=== PATIENT | female | born 1980 ===

== ENCOUNTER → 2019-05-13 | Outpatient (CLI) | payer OTHER | LOC: LAB SHORT 12:12 → LAB 12:12 | DX: Z34.80 Encounter for supervision of other normal pregnancy, unspecified trimester (principal) | CPT/HCPCS: 87081; 87653 ==

== ENCOUNTER 2019-05-31 18:25 | Inpatient (IN) | payer OTHER ==
[~2019-05-31] VITALS: Ht 162.6 cm; Wt 86.8 kg
[2019-05-31 19:23] LABS: BASOPHILS ABSOLUTE AUTO 0.09 K/mm3 (0.00-0.23); BASOPHILS PERCENT AUTO 1 % (0-2); EOSINOPHILS ABSOLUTE AUTO 0.32 K/mm3 (0.00-0.68); EOSINOPHILS PERCENT AUTO 3 % (0-6); Hematocrit 36.3 % (33.0-51.0); Hemoglobin 12.1 g/dL (11.5-16.0); IMMATURE GRAN ABSOLUTE AUTO 0.13 K/mm3 (0.00-0.10); IMMATURE GRAN PERCENT AUTO 1 % (0-1); LYMPHOCYTES ABSOLUTE AUTO 2.87 K/mm3 (0.84-5.20); LYMPHOCYTES PERCENT AUTO 22 % (21-46); MONOCYTES ABSOLUTE AUTO 1.12 K/mm3 (0.16-1.47); MONOCYTES PERCENT AUTO 9 % (4-13); Mean Corpuscular HGB 31.7 pg (26.0-34.0); Mean Corpuscular HGB Conc 33.3 g/dL (31.5-36.5); Mean Corpuscular Volume 95 fL (80-100); Mean Platelet Volume 10.1 fL (9.1-12.4); NEUTROPHILS ABSOLUTE AUTO 8.53 K/mm3 (1.96-9.15); NEUTROPHILS PERCENT AUTO 65 % (41-73); Platelet Count 263 K/mm3 (150-400); RDW Coefficient Variation 13.2 % (11.7-14.2); RDW Standard Deviation 46.2 fL (35.1-46.3); Red Blood Cell Count 3.82 M/mm3 (3.80-5.20); White Blood Cell Count 13.06 K/mm3 (4.00-11.30)
[2019-05-31] MEDS ORDERED: Prenatal Compl1 EACH PO (19:25)
[2019-05-31] MEDS ORDERED: BUSP10 PO (19:26)
[2019-05-31] MEDS ORDERED: Sertraline HCl50 MG PO (19:26)
[2019-05-31] MEDS ORDERED: DOCU100 PO (19:27)
[2019-05-31 22:01] LABS: U Amphetamine Screen Not Detected; U Barbituate Screen Not Detected; U Benzodiazapine Screen Not Detected; U Buprenorphine Screen Not Detected; U Cannabinoids Screen Not Detected; U Cocaine Screen Not Detected; U Methadone Screen Not Detected; U Methamphetamine Screen Not Detected; U Opiates Screen Not Detected; U Oxycodone Screen Not Detected; U Phencyclidine Screen Not Detected; U Propoxyphene Screen Not Detected
--- NOTE | 2019-06-01 08:08 | NUR ---
PT TO [facility] TO SEE INFANT.
--- NOTE | 2019-06-01 09:57 | NUR ---
PT IN [facility]RS[facility] WELL
[2019-06-01 12:47] LABS: BASOPHILS ABSOLUTE AUTO 0.11 K/mm3 (0.00-0.23); BASOPHILS PERCENT AUTO 1 % (0-2); EOSINOPHILS ABSOLUTE AUTO 0.39 K/mm3 (0.00-0.68); EOSINOPHILS PERCENT AUTO 3 % (0-6); Hematocrit 34.9 % (33.0-51.0); Hemoglobin 11.4 g/dL (11.5-16.0); IMMATURE GRAN ABSOLUTE AUTO 0.21 K/mm3 (0.00-0.10); IMMATURE GRAN PERCENT AUTO 2 % (0-1); LYMPHOCYTES ABSOLUTE AUTO 3.04 K/mm3 (0.84-5.20); LYMPHOCYTES PERCENT AUTO 23 % (21-46); MONOCYTES ABSOLUTE AUTO 1.64 K/mm3 (0.16-1.47); MONOCYTES PERCENT AUTO 12 % (4-13); Mean Corpuscular HGB 31.7 pg (26.0-34.0); Mean Corpuscular HGB Conc 32.7 g/dL (31.5-36.5); Mean Corpuscular Volume 97 fL (80-100); Mean Platelet Volume 10.4 fL (9.1-12.4); NEUTROPHILS ABSOLUTE AUTO 8.06 K/mm3 (1.96-9.15); NEUTROPHILS PERCENT AUTO 60 % (41-73); Platelet Count 233 K/mm3 (150-400); RDW Coefficient Variation 13.3 % (11.7-14.2); RDW Standard Deviation 47.6 fL (35.1-46.3); White Blood Cell Count 13.45 K/mm3 (4.00-11.30)
--- NOTE | 2019-06-01 15:56 | NUR ---
RN INSTRUCT/DEMO WIDENING LATCH, CORRECT POSITIONING, AND NIPPLE SHAPE AFTER BRF. NB IN NURSERY DURING BRF ATTEMPT. NB LATCHED WELL. RHYTHMATIC SUCK DURING FEED, MOM DENIES PAIN WITH LATCH, AND DENIES ANY FURTHER QUESTIONS.
--- NOTE | 2019-06-02 10:50 | NUR ---
RN ROUNDED TO HELP PT WITH BRF NB. PT VERY UPSET ABOUT BEING TOLD SHE WAS NOT FEEDING HER NB ENOUGH DURING [employer]. RN INSTRUCT/REVIEWED BOOKLET AND BROCHURE WITH MOTHER TO SHOW WHAT WE EXPECT BREASTMILK SUPPLY TO BE AND WHAT NB BEHAVIORS ARE DOING DURING THE FIRST WEEK OF LIFE, INCULDING STOMACH SIZE DURING THE FIRST 10 DAYS. RN HAD WORKED WITH PT IN THE NURSERY YESTERDAY (05/31) TO LATCH CORRECTLY, PT WAS ABLE TO LATCH EASILY AND NB FED WHILE DURING THAT FEED, MOM REPORTS THAT NB WAS BRF WELL DURING ALL FEEDS UNTIL FORMULA WAS GIVEN. PER VERBAL REPORT 30CC FORMULA WAS GIVEN. NB NOW SKIN TO SKIN, SLEEPING WELL, NOT WAKING TO FEED AT THIS TIME, RN DISCCUSSED HAND EXPRESSING SEVERAL DROPS OF COLOSTRUM INTO NB'S MOUTH TO SEE IF NB WOULD WAKE TO FEED MORE EASILY, INTRUCTED TO DO THIS EVERY COUPLE HOURS. PT HAS A STRONG DESIRE TO BREASFEED, RN ENCOURAGED MOTHER TO KEEP NB SKIN TO SKIN, EXPRESS COLOSTRUM EVERY 2 HOURS INTO NB MOUTH, AND START EACH FEED AT THE BREAST, PT VERBALIZED UNDERSTANDING. EARLY FEEDING QUES DISCUSSED AND TO ATTEMPT TO LATCH IF ANY QUES NOTICED. RN ENCOURAGED MOM TO SUPPLEMENT AT THE BREAST IF PHYSICIAN ORDERS SUPPLEMENTATION TO CONTINUE TO STIMULATE MILK SUPPLY IN. REPORT OF VISIT GIVEN TO FLOOR RN CARING FOR PT.
[2019-06-02] MEDS ORDERED: IBUP800 PO (11:24)
--- NOTE | 2019-06-02 20:50 | NUR ---
DISCHARGE TEACHING TEACHING COMPLETED WITH PATIENT. PATIENT VERBALIZES UNDERSTANDING AND HAS NO FURTHER QUESTIONS OR CONCERNS AT THIS TIME
--- NOTE | 2019-06-02 21:07 | NUR ---
PATIENT DISCHARGED TO BOARDER STATUS AT [id number]
--- NOTE | 2019-06-03 00:54 | NUR ---
LATE ENTRY TO DOCUMENT ON DISCHARGE CHECK LIST, COMPLETION OF CERTIFICATE AND PATIENT PORTAL
== END 2019-06-02 21:05 | disposition home or self-care (01) | DRG 807 ==
LOC: BC 18:25 → OBS 18:25 → BC 19:00
PROVIDERS: ADMIT Registered Nurse Community Health
PROC: 10E0XZZ Delivery of Products of Conception, External Approach (ICD-10-PCS; principal; 2019-06-01)
PROC: 10907ZC Drainage of Amniotic Fluid, Therapeutic from Products of Conception, Via Natural or Artificial Opening (ICD-10-PCS; 2019-06-01)
DX: O99.344 Other mental disorders complicating childbirth (principal); Z37.0 Single live birth; F32.9 Major depressive disorder, single episode, unspecified; F41.9 Anxiety disorder, unspecified; Z3A.38 38 weeks gestation of pregnancy; Z79.899 Other long term (current) drug therapy; Z87.891 Personal history of nicotine dependence
CPT/HCPCS: 36415; 85025; 86850; 86900; 86901; J1885; J2210; J2590; J3010; J7120